=== PATIENT | female | born 1985 | race Caucasian/White ===

== ENCOUNTER 2024-01-03 08:08 | Outpatient (CLI) | payer OTHER, SELFPAY ==
--- NOTE | ~2024-01-03 | MM_ITS ---
EXAMINATION: MM screening ruthie BI w pablito HISTORY: Screening mammogram TECHNIQUE: Bilateral craniocaudal, lateral rotated left craniocaudal and bilateral mediolateral obliq ue 3-D tomosynthesis images were obtained and synthetic 2-D images were generated. CAD analysis was s ubmitted and interpreted. COMPARISON: Baseline examination. No prior mammogram is available for comparison at this institution. BREAST PARENCHYMAL COMPOSITION: The breasts are extremely dense, which lowers the sensitivity of mamm ography. FINDINGS: There is no evidence of suspicious mass, calcification, or architectural distortion to sugg est malignancy in either breast. IMPRESSION: 1. No mammographic evidence of malignancy. 2. Recommend routine screening mammography in one year. BI-RADS Category 1: Negative Reviewed, dictated and finalized at location A.
== END 2024-01-03 08:09 | disposition home or self-care (01) ==
LOC: CHSIMG 08:12
PROVIDERS: PCP Internal Medicine
DX: Z12.31 Encounter for screening mammogram for malignant neoplasm of breast (principal)
CPT/HCPCS: 77063; 77067

== ENCOUNTER 2025-01-30 13:19 | Outpatient (CLI) | payer OTHER, SELFPAY ==
--- NOTE | ~2025-01-30 | MM_ITS ---
EXAMINATION: MM screening ruthie BI w pablito HISTORY: Screening TECHNIQUE: Craniocaudal and mediolateral oblique 3-D tomosynthesis images were obtained and synthetic 2-D images were generated. CAD analysis was submitted and interpreted. COMPARISON: 01/03/2024 BREAST PARENCHYMAL COMPOSITION: The breasts are heterogeneously dense, which may obscure small masses . FINDINGS: There is no evidence of suspicious mass, calcification, or architectural distortion to sug gest malignancy in either breast. There has been no suspicious interval change. IMPRESSION: 1. No mammographic evidence of malignancy. 2. Recommend routine screening mammography in one year. BI-RADS Category 1: Negative Reviewed, dictated and finalized at location B.
--- OUTSIDE RECORDS SUMMARY | 2025-01-30 13:56 | XMS_ITS | Data Portability ---
Author Organization [place] [facility], EFF_Historical Results Address [address] [place] [address] Care Team Providers Care Exercise Physiologist Name Role Phone JAMEEL AGOSTO Primary Care Provider Assessment Encounter Date Assessment Date Assessment LastModified by Organization Details LastModified Time 11/20/2024 11/20/2024 -Pap/HR HPV done and if normal rpt in 5 years -Discussed breast self-awareness . Can do Baseline mammogram 35-40 and if over 40 annually. -Contraceptive options discussed. Patient plans vasectomy -Encouraged condoms for the prevention of STDs -Reviewed that colon cancer screening is recommended to begin at age 45. -Sunscreen and seat belt use encouraged. -Age appropriate vaccines discussed with patient. -Follow up as needed, or for yearly gynecologic exam [email or web address] Not available 11/20/2024 12:47:50 Plan of Treatment Reminders Order Date Submit Date Provider Last Modified By Organization Details Last Modified Time Details Appointments None recorded . Lab pap, IG + HPV mRNA E6/E7 + reflex HPV (16+18+4 5) 025 11/21/19 25 [facility], [address] [place], [address], 10:51:55 Referral None recorded . Procedures None recorded . Surgeries None recorded . Imaging None recorded . Medication Orders None recorded . Patient TargetsNo targets recorded. Patient Instructions Encounter Date Encounter Id Patient Instructions Last Modified By Organization Details Last Modified Time 11/20/2024 [id number] Discussed cotesting [email or web address] Not available 11/20/2024 12:52:18 Reason for Referral None Reported. Results Created Date Observation Date Name Description Value Unit Range Abnormal Flag Note LastModifiedBy Organization Detail LastModifiedTime 11/21/19 25 11/24/2024 THINP REP TIS PAP AND HPV MRNA E6/E7 WITH REFLE X TO HPV 16,18 /45 clinical information: normal 2003 Abnor mal Pap; colpo ASCUS -HRHP V Not Available [address], [address], 11/24/2024 10:51:55 11/21/19 25 11/24/2024 THINP REP TIS PAP AND HPV MRNA E6/E7 WITH REFLE X TO HPV 16,18 /45 LMP: normal 2019 ABLAT ION Not Available [address], [address], 11/24/2024 10:51:55 11/21/19 25 11/24/2024 THINP REP TIS PAP AND HPV MRNA E6/E7 WITH REFLE X TO HPV 16,18 /45 prev. Pap: normal NONE GIVEN Not Available [address], [address], 11/24/2024 10:51:55 11/21/19 25 11/24/2024 THINP REP TIS PAP AND HPV MRNA E6/E7 WITH REFLE X TO HPV 16,18 /45 prev. BX: normal NONE GIVEN Not Available [address], [address], 11/24/2024 10:51:55 11/21/19 25 11/24/2024 THINP REP TIS PAP AND HPV MRNA E6/E7 WITH REFLE X TO HPV 16,18 /45 source: normal Cervi x, Endoc ervix Not Available [address], [address], 11/24/2024 10:51:55 11/21/19 25 11/24/2024 THINP REP TIS PAP AND HPV MRNA E6/E7 WITH REFLE X TO HPV 16,18 /45 statement of adequacy: normal Satis facto ry for evalu ation . Endoc ervic al/tr ansfo rmati on zone compo nent prese nt. Not Available [facility] [address] [place], [address], 11/24/2024 10:51:55 11/21/19 25 11/24/2024 THINP REP TIS PAP AND HPV MRNA E6/E7 WITH REFLE X TO HPV 16,18 /45 interpretati on/result: normal Cytol ogy Resul ts: Negat stephanie for intra epith elial lesio n or malig mario . Not Available [facility] [address] [place], [address], 11/24/2024 10:51:55 11/21/19 25 11/24/2024 THINP REP TIS PAP AND HPV MRNA E6/E7 WITH REFLE X TO HPV 16,18 /45 comment: normal This Pap test has been evalu ated with compu ter catalino ron techn ology . Not Available [facility] [address] [place], [address], 11/24/2024 10:51:55 11/21/19 25 11/24/2024 THINP REP TIS PAP AND HPV MRNA E6/E7 WITH REFLE X TO HPV 16,18 /45 cytotechnolo gist: normal LITTLEJOHN, CT( CP) CT Scree ector locat ion: [address] [place] [address] Not Available [facility] [address] [place], [address], 11/24/2024 10:51:55 11/21/19 25 11/24/2024 THINP REP TIS PAP AND HPV MRNA E6/E7 WITH REFLE X TO HPV 16,18 /45 comment EXPLA NATOR Y NOTE: The Pap is a scree ector test for cervi luis alberto cance r. It is not a diagn ostic test and is subje ct to false negat stephanie and false posit stephanie resul ts. It is most relia ble when a satis facto ry sampl e, regul giovanna obtai honey, is submi tted with relev ant clini luis alberto findi ngs and histo ry, and when the Pap resul t is evalu ated along with histo myles and curre nt clini luis alberto infor danya wilder. Not Available [facility] [address] [place], [address], 11/24/2024 10:51:55 11/21/19 25 11/24/2024 THINP REP TIS PAP AND HPV MRNA E6/E7 WITH REFLE X TO HPV 16,18 /45 HPV MRNA E6/E7 Not Detect ed not detect ed normal Metho dolog y: Trans cript ion-M ediat ed Ampli ficat ion This assay detec ts E6/E7 viral messe nger RNA (mRNA ) from 14 high- risk HPV types (16,1 8,31, 33,35 ,39,4 5,51, 52,56 ,58,5 9,66, 68). Cervi luis alberto sourc es are requi red for HPV testi ng. If a vagin al sourc e from a patie nt who has had a total hyste recto my with remov al of cervi x was submi tted, pleas e conta ct the testi ng labor atory for alter nativ e testi ng optio ns. For addit ional dylonr jenelle simpson refer to http: //stephen wilder.ana stdia gnost ics.c om/fa q/FAQ 129v1 (This link if provi ded for infor danya wilder/ julianne sauceda purpo ses only. ) Not Available [facility] [address] , [place], [address], 11/24/2024 10:51:55 Result Notes None recorded. Problems Name Problem SNOMED Code Status Onset Date Resolution Date Notes Provider Name and Address Organization Details Recorded Time History of abnormal cervical Papanicolaou smear 412846276 Active 2024 PATIENCE Day [facility] 11:26:40 Migraine 90506734 Active 2024 PATIENCE Day [facility] 11:26:49 Problem Notes None recorded. Procedures Surgical History Date Name Laterality Status Provider Name and Address Organization Details Recorded Time 11/21/19 25 Date of Last Pap Smear completed Sangita Jade [facility] 11/25/2024 13:04:47 01/03/20 24 Date of [facility] 11:34:48 06/22/20 [facility] 11:50:33 08/28/19 20 Endometrial Ablation completed [facility] 11/20/2024 12:26:43 08/28/19 11 Dilation and Curettage completed [facility] 11/20/2024 12:26:43 08/28/19 04 colposcopy completed [facility] 11/18/2024 11:48:43 Imaging Results None recorded. Procedure Notes None recorded. Medical Equipment None Reported. Allergies Allergen ID Allergen Name Allergen Category Reaction Reaction Severity Criticality Documentation Date Start Date Code Code System Note Provider Name and Address Organization Details Recorded Time 22148 Product containin g penicilli n (product) medicatio n hives moderate Not available 11/18/2024 62175 8001 SNOMED Kylah Jeffrieskling null, [facility] 10:48:36 53923 Substance with sulfonami de structure and antibacte rial mechanism of action (substanc e) medicatio n hives moderate Not available 11/18/2024 00596 8003 SNOMED Kylah Jeffrieskling null, [facility] 10:48:48 Medications Name Sig Start Date Stop Date Status Note LastModified by Organization Details LastModified Time Prescription - Clarificatio n 11/18 completed Imported - [place]MP Not Available Not Available Not Available Nurtec ODT 75 mg disintegrati ng tablet active Not Available Not Available No t Available Vitals Date Recorded Body weight Body mass index (BMI) Body height Systolic blood pressure Diastolic blood pressure Provider Name and Address Organization Details Last Updated DateTime 11/20/2024 61519.56 g 22.8 kg/m2 164.47 cm 124 mm[Hg] 82 mm[Hg] Kylah Jeffriesosvaldo [facility] 12:26:21 Social History Question Answer Notes LastModified by Organizat ion Details LastModified Time Tobacco Smoking Status Never Smoker [facility] 11/18/2024 11:47:48 What Is Your Level Of Caffeine Consumption? Moderate Information not available 11/18/2024 What Type Of Diet Are You Following? REGULAR Information not available 11/20/2024 Who Is Your Employer? [employer] 1 Information not available 11/20/2024 Have There Been Any Changes To Your Family Or Social Situation? No Information not available 11/20/2024 What Is The Highest Level Of School You Have Completed Or The Highest Degree You Have Received? Master's Degree Information not available 11/18/2024 How Do You Identify Yourself? Heterosexual Information not available 11/20/2024 What Is Your Ethnicity? Information not available 11/20/2024 What Was The Date Of Your Most Recent Tobacco Screening? 11/20/2024 Information not available 11/20/2024 What Is Your Relationship Status? Information not available 11/18/2024 Are There Any Smokers In Your House? No Information not available 11/20/2024 Sex: Female Functional Status Question Answer Note LastModified by Organizat ion Details LastModified Time Do you use any illicit or recreational drugs? No Information not available 11/18/2024 Do you or have you ever used any other forms of tobacco or nicotine? No Information not available 11/20/2024 What is your level of alcohol consumption? Occasional Information not available 11/20/2024 Are you currently employed? Yes Information not available 11/20/2024 What is your occupation? Teacher Information not available 11/20/2024 What is your exercise level? Occasional Information not available 11/20/2024 Mental Status None recorded. Family History Relationship Description Onset Age of this Age Resolved Age Notes LastModified by Organization Details LastModified Time Father No current problems or disability Not available 10/27 11:47:12 Mother No current problems or disability Not available 10/27 11:47:12 Medical History Condition Response Allergies (Food, seasonal, environmental ) N Other N Thyroid Disease N Cancer Endometrial N Blood Transfusion N Cancer Breast N Migraines Y GI Problems N Lung Disease N Depression N Eating Disorder N Hematologic (Blood) Disorder N Gestational Diabetes N Anemia N Psychiatric Disorder N Thrombophilia N Cancer Colon N Anxiety Disorder N Diabetes N Cancer Other N Arthritis N Cancer Uterine N Acid Reflux (GERD) N Stroke N Asthma N Polycystic Ovary Syndrome (PCOS) N Endometriosis N High Cholesterol N Neurologic Disorder N Defects N Liver Disease N Cancer Ovarian N Heart Disease N Fibromyalgia N Deep Vein Thrombosis (DVT) or Pulmonary Embolism (PE) N Hypertension N Osteoporosis N Kidney Disease N Autoimmune Disease N Gynecological History Statement/Question Response Abnormal Pap Y Flow Light Date of Last Mammogram 01/03/2024 Date of LMP 05/04/2020 STIs/STDs N HPV Vaccine Y Duration of Flow (days) 5 Age at Menarche 10 Current Control Method Partner Vas ectomy Date of Last DEXA Date of Last Colonoscopy Sexually Active? Y Menses Monthly N Date of Last Pap Smear 11/20/2024 Obstetrics History GPAL:G 4 P 2 0 2 2 Type Value Full Term 2 Spontaneous 2 Living 2 Total 4 Past Encounters Encounter ID Performer Location Encounter Start Date Encounter Closed Date Diagnosis/Indication Diagnosis SNOMED-CT Code Diagnosis ICD10 Code Diagnosis Note [id number] ADRIANA LANG MD [facility] [address] [place] [address] 11/20/2024 12:03:30 11/20/2024 12:59:48 Gynecologic examination 49499718 Z01.419 Screening for malignant neoplasm of cervix 753015404 Z12.4 History of endometrial ablation 9650248671 01967 Z98.890 2020 Health Concerns Section Related Observation LastModified by Organization Detai ls LastModified Time None Recorded Concern Status LastModified by Organization Details LastModified Time None Recorded Advance Directives Directive None Recorded Payers Insurance Date Sequence Insurance Name Policy Number Policy Healy Covered Member ID Healy Member ID Guarantor Name 11/18/2024 1 [facility] [id number] Eloisa Riojas [id number] Eloisa Riojas Notes Date Note Type Note Provider Name and Address Organization Details Recorded Time 11/20/2024 text/html Annual GYNReport ed bypatient.History: no gynecologic complaints; date of last Pap test (10-26-23 Normal); obstetric history: Menstrual cycle:Absent since ablation Urinary symptoms:no hematuria; no incontinence Vulva:no genital lesion Vagina:normal vaginal discharge Breast:no breast pain; no breast lump; no nipple discharge Current Contraception:sati sfied with current contraception; monogamous relationship; partner had vasectomy Sexual complaints:no sexual complaints; no pain during intercourse; normal libido Menopausal Symptoms:normal vaginal lubrication Psychological symptoms:no depression; no anxiety; no PMDD Preventive measures:encourage self breast examination; encourage regular exercise; encourage regular mammograms starting age 40; history of abnormal pap smear/cervical dysplasia; mammogram performed within the past year ADRIANA LANG MD [address] [place] [address], [phone] 11/20/2024 12:52:55 OBGyn Episode Ob Episode Information Episode Created Date Number of Fetuses Patient Bloodtype Patient rh Status Prepregnancy Weight lbs Domestic Partner Domestic Partner Phone Father Name Artificial Foliage Arranger Status 11/19/19 25 1 CLOSED Fetus Data First Name Last Name Admitted to NICU Weight (g) Sex Living Outcome Pediatric Complications Fetus ID Race Codes Race Delivery Type 3231.84 3 M Full Term 23046 Vacuum Extractio n Marco Calculation Initial Marco Date Initial Exam Date Initial Exam Provider Initial Ultrasound Date Last Menstrual Period Date Ultra Sound Weeks Gestation 0 Eighteen To Twenty Week Marco Update Ultra Sound Date Fundal Height At Umbil Quickening Date Ultra Sound Latest Weeks Gestation Final Marco Confirmed By Final Marco Confirmed Date Final Marco Date Ultra Sound Latest Days Gestation 0 0 Menstrual History Last Menstrual Date Menses Monthly On Bcp Conception Prior Menses Frequency Hcg Plus Date Menarche Onset Age Delivery Information Delivery Date Delivery Type Labor Anesthesia Weeks Gestation Incision Type Labor Labor Length Hrs Delivered By Post Complications Tubal Sterilization Discharge Date Comments 3 Regional-Ep idural 39 4th degree MLE-Dr Lang Discharge Information Feeding Method Contraceptive Method Maternal HG B and HCT Levels Ob Episode Information Episode Created Date Number of Fetuses Patient Bloodtype Patient rh Status Prepregnancy Weight lbs Domestic Partner Domestic Partner Phone Father Name Artificial Foliage Arranger Status 11/19/19 25 1 CLOSED Fetus Data First Name Last Name Admitted to NICU Weight (g) Sex Living Outcome Pediatric Complications Fetus ID Race Codes Race Delivery Type , Spontane ous [id number] Marco Calculation Initial Marco Date Initial Exam Date Initial Exam Provider Initial Ultrasound Date Last Menstrual Period Date Ultra Sound Weeks Gestation 0 Eighteen To Twenty Week Marco Update Ultra Sound Date Fundal Height At Umbil Quickening Date Ultra Sound Latest Weeks Gestation Final Marco Confirmed By Final Marco Confirmed Date Final Marco Date Ultra Sound Latest Days Gestation 0 0 Menstrual History Last Menstrual Date Menses Monthly On Bcp Conception Prior Menses Frequency Hcg Plus Date Menarche Onset Age Delivery Information Delivery Date Delivery Type Labor Anesthesia Weeks Gestation Incision Type Labor Labor Length Hrs Delivered By Post Complications Tubal Sterilization Discharge Date Comments 1 5 Discharge Information Feeding Method Contraceptive Method Maternal HG B and HCT Levels Ob Episode Information Episode Created Date Number of Fetuses Patient Bloodtype Patient rh Status Prepregnancy Weight lbs Domestic Partner Domestic Partner Phone Father Name Artificial Foliage Arranger Status 11/19/19 25 1 CLOSED Fetus Data First Name Last Name Admitted to NICU Weight (g) Sex Living Outcome Pediatric Complications Fetus ID Race Codes Race Delivery Type 3231.84 3 M Full Term 03250 Vaginal Marco Calculation Initial Marco Date Initial Exam Date Initial Exam Provider Initial Ultrasound Date Last Menstrual Period Date Ultra Sound Weeks Gestation 0 Eighteen To Twenty Week Marco Update Ultra Sound Date Fundal Height At Umbil Quickening Date Ultra Sound Latest Weeks Gestation Final Marco Confirmed By Final Marco Confirmed Date Final Marco Date Ultra Sound Latest Days Gestation 0 0 Menstrual History Last Menstrual Date Menses Monthly On Bcp Conception Prior Menses Frequency Hcg Plus Date Menarche Onset Age Delivery Information Delivery Date Delivery Type Labor Anesthesia Weeks Gestation Incision Type Labor Labor Length Hrs Delivered By Post Complications Tubal Sterilization Discharge Date Comments 6 [facility] idural [address] Jesus Discharge Information Feeding Method Contraceptive Method Maternal HG B and HCT Levels Ob Episode Information Episode Created Date Number of Fetuses Patient Bloodtype Patient rh Status Prepregnancy Weight lbs Domestic Partner Domestic Partner Phone Father Name Artificial Foliage Arranger Status 11/19/19 25 1 CLOSED Fetus Data First Name Last Name Admitted to NICU Weight (g) Sex Living Outcome Pediatric Complications Fetus ID Race Codes Race Delivery Type , Spontane ous [id number] Marco Calculation Initial Marco Date Initial Exam Date Initial Exam Provider Initial Ultrasound Date Last Menstrual Period Date Ultra Sound Weeks Gestation 0 Eighteen To Twenty Week Marco Update Ultra Sound Date Fundal Height At Umbil Quickening Date Ultra Sound Latest Weeks Gestation Final Marco Confirmed By Final Marco Confirmed Date Final Marco Date Ultra Sound Latest Days Gestation 0 0 Menstrual History Last Menstrual Date Menses Monthly On Bcp Conception Prior Menses Frequency Hcg Plus Date Menarche Onset Age Delivery Information Delivery Date Delivery Type Labor Anesthesia Weeks Gestation Incision Type Labor Labor Length Hrs Delivered By Post Complications Tubal Sterilization Discharge Date Comments 1 Discharge Information Feeding Method Contraceptive Method Maternal HG B and HCT Levels
== END 2025-01-30 13:20 | disposition home or self-care (01) ==
LOC: CHSIMG 13:20
PROVIDERS: PCP Internal Medicine
DX: Z12.31 Encounter for screening mammogram for malignant neoplasm of breast (principal)
CPT/HCPCS: 77063; 77067

== ENCOUNTER 2025-05-06 15:56 | Outpatient (RCR) | payer OTHER, SELFPAY ==
--- NOTE | 2025-05-06 17:10 | OPREHPOC ---
Outpatient Therapy Plan of Care This is a Multidisciplinary Plan of Care that may contain components documented by all disciplines (PT, OT, and ST.) PT Problem 1 PT Problem #1 Knowledge Deficit PT Goal 1 Goal / Goal Update Independent and compliant with HEP. Target Visit 2 PT Problem 2 PT Problem #2 Impaired Strength PT Goal 1 Goal / Goal Update Pt to improve gross bilat ankle/foot strength to 5 /5. Pt to improve bilat hip flexion and abduction strength to 5/5. Target Visit 12 PT Problem 3 PT Problem #3 Impaired Gait PT Goal 1 Goal / Goal Update Pt to ambulate with less flat foot posture indicating improved ankle/foot strength and arch support. Pt to report 0% perceived disability on LEFS. Pt to report being able to stand and walk all day at work with no more than 2/10 bilateral foot pain at end of day. Target Visit 12
--- NOTE | 2025-05-06 17:11 | PTOPEVAL1 ---
Assessment and note entered by Cristina Parker, PT Evaluation Information Assessment Status Evaluation ICD-10 Condition Codes (PT) Pain in right ankle and joints of right foot M25. 571,Pain in left ankle and joints of left foot M25 .572 Other ICD-10 Condition Codes ( M6.821, M6.822 PT) Onset 05/05/2025 Subjective Information Pt reports her L foot has been hurting her for years and her R foot started hurting when the school year started this year. She works as a teacher at [employer]. She reports she was told it's not plantar fasciitis. She states her feet feel better when she wears inserts or comfortable shoes . She reports her feet when she gets up after sitting or lying down for a long time, and the pain also increases when she's been on her feet for a long time. She reports her pain is worse on the L than R foot and that it's aching in nature. She does report her R foot was tingly for a day but it hasn't been like that since. Reported Pain Level Pain Score 4: Self Report Assessment PT Clinical Summary Mrs. Riojas is a 39 yo female presenting with bilateral posterior tibialis tendonitis. 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 She demonstrates bilateral tenderness in the area posterior to the medial malleolus on bilateral ankles, as well as weakness in bilateral ankle/foot inversion. She also demonstrates weakness in bilat hip flexors and abductors and demonstrates hip IR mm tightness. She demonstrates flat foot posture during standing and ambulation, especially during the stance phase of the gait cycle that is more pronounced on the L vs R foot. Her pain interferes with her ability to stand and walk for long periods of time and skilled PT intervention is indicated to address the aformentioned deficits to improve her pain and bilateral foot stability to be able to stand and walk at home, in the community and at work with less pain. Plan of Care Interventions Electrical Stimulation,Gait Training,Hot Pack/Cold Pack,Manual Therapy,Neuro Re-education,Patient/ Caregiver Education,Therapeutic Activities, Therapeutic Exercise,Self-Care/Home Management, Ultrasound Other Interventions TPDN PT Services Indicated Yes Treatment Frequency and 2x/week for 12 visits Duration These treatments will address the objective and functional deficits as defined above. The patient will be advanced safely and appropriately in order for the patient to progress towards his/her prior level of function. Additional exercises will be introduced and as well as a comprehensive home exercise program upon discharge, if needed, ?to ensure carryover of functional gains achieved in the clinic. This treatment plan has been reviewed and agreement upon by the patient.
--- NOTE | 2025-06-12 17:31 | OPREHPOC ---
Outpatient Therapy Plan of Care This is a Multidisciplinary Plan of Care that may contain components documented by all disciplines (PT, OT, and ST.) PT Problem 1 PT Problem #1 Knowledge Deficit PT Goal 1 Goal / Goal Update Independent and compliant with HEP. Target Visit 2 Progress Met PT Problem 2 PT Problem #2 Impaired Strength PT Goal 1 Goal / Goal Update Pt to improve gross bilat ankle/foot strength to 5 /5. -met Pt to improve bilat hip flexion and abduction strength to 5/5. -met for all except L hip flexion Target Visit 12 Progress Partially Met PT Problem 3 PT Problem #3 Impaired Gait PT Goal 1 Goal / Goal Update Pt to ambulate with less flat foot posture indicating improved ankle/foot strength and arch support. -met Pt to report 0% perceived disability on LEFS. -met Pt to report being able to stand and walk all day at work with no more than 2/10 bilateral foot pain at end of day. -depends on shoewear Target Visit 12 Progress Partially Met
--- NOTE | 2025-06-12 17:32 | PTOPDC ---
Assessment and note entered by Cristina Parker, PT Evaluation Information Assessment Status Discharge ICD-10 Condition Codes (PT) Pain in right ankle and joints of right foot M25. 571,Pain in left ankle and joints of left foot M25 .572 Other ICD-10 Condition Codes ( M6.821, M6.822 PT) Onset 05/05/2025 Subjective Information Eloisa presents for her 10th skilled PT visit today. She denies pain currently and reports she only has pain at the end of the day when she wears certain shoes. She does not have difficulty with any functional tasks and she is no longer inhibited in doing things because of pain. She has been independent with her HEP and feels good enough to discharge from PT this date. She does have an MD follow up in the next couple weeks where she believes she will be getting some insoles. Reported Pain Level Pain Score 0: Self Report Pain Score 0: Self Report Assessment PT Clinical Summary Mrs. Riojas has attended 10 skilled PT visits for ankle pain due to bilateral posterior tibialis tendonitis. She denies pain this date and only has pain with certain shoewear. She demonstrates improvement in her bilateral ankle and hip strength and demonstrates 0% disability on LEFS. She has been independent and has met or partially met all therapeutic goals set for her, and she will be discharged from skilled PT this date. Plan of Care PT Services Indicated No
== END 2025-06-12 20:00 | disposition home or self-care (01) ==
LOC: CHSPT 15:56
PROVIDERS: Visit Provider Podiatrist Foot & Ankle Surgery
DX: M76.821 Posterior tibial tendinitis, right leg (principal); M76.822 Posterior tibial tendinitis, left leg
CPT/HCPCS: 97110; 97112; 97140; 97150; 97161; 97530